=== PATIENT | female | born 1990 | race Caucasian/White ===

== ENCOUNTER 2017-04-25 11:45 | Emergency (ER) | payer BC, OTHER ==
[~2017-04-25] VITALS: Ht 167.6 cm; Wt 78.0 kg
[~2017-04-25 11:45] MED LIST: OXYC-360 PO
[2017-04-25 12:05] VITALS: BP 143/103; PULSE 97; RESP 18; TEMP 98.9; O2SAT 98
[2017-04-25] MEDS ORDERED: MORPHINE SULFATE 4 MG/ML INJ IV PUSH ONE (12:15)
[2017-04-25] MEDS ORDERED: SODIUM CHLORIDE 0.9% FLUSH 10 ML FLUSH IV FLUSH PRN (12:15)
--- NOTE | 2017-04-25 12:20 | PD ---
HPI Chief Complaint: Musculoskeletal Complaint Time Seen by Provider: 11:59 Travel History International Travel<30 days: No Contact w/Intl Traveler<30days: No Traveled to known affect area: No History of Present Illness HPI Patient is a 27 year old female who presents to ER with c/o of right shoulder pain. Patient reports that she was "horsing around" with her friend last night around 11pm. Reports that she ended up falling onto a table and landing on her right shoulder. Patient's friend landed on top of her during this. Reports that she has been having moderate to severe pains with ROM to her right shoulder. Patient's friend reports that he googled how to do a shoulder reduction while at home, reports "i can't get her shoulder back into place." Patient denies any trauma to her head/neck. Denies chest pain/sob. Denies abdominal pain. Reports that she last ate food last night but did have a few beers this morning. Denies hx of shoulder dislocation in the past. Patient reports that she is not on any medications at this time. PFSH Past Medical History Depression: Yes (2 OTHER SUICIDE ATTEMPTS) Diminished Hearing: No Past Surgical History Tonsillectomy: Yes (2006) Social History Alcohol Use: Yes Tobacco Use: No Substance Use: No Allergies-Medications (Allergen,Severity, Reaction): Coded Allergies: No Known Allergies (Verified Allergy, Mild, 05/30/07) Reported Meds & Prescriptions Reported Meds & Active Scripts Active Tramadol (Tramadol HCl) 50 Mg Tab 50 Mg PO Q6H PRN Review of Systems General / Constitutional: No: Fever Eyes: No: Visual changes HENT: No: Headaches Cardiovascular: No: Chest Pain or Discomfort Respiratory: No: Shortness of Breath Gastrointestinal: No: Abdominal Pain Genitourinary: No: Dysuria Musculoskeletal: Positive: Limited ROM (right shoulder), Pain (right shoulder) Skin: No Rash Neurologic: No: Weakness Psychiatric: No: Depression Endocrine: No: Polydipsia Hematologic/Lymphatic: No: Easy Bruising Physical Exam Narrative GENERAL: moderate distress SKIN: Focused skin assessment warm/dry. HEAD: Atraumatic. Normocephalic. EYES: Pupils equal and round. No scleral icterus. No injection or drainage. ENT: No nasal bleeding or discharge. Mucous membranes pink and moist. NECK: Trachea midline. No JVD. CARDIOVASCULAR: Regular rate and rhythm. No murmur appreciated. RESPIRATORY: No accessory muscle use. Clear to auscultation. Breath sounds equal bilaterally. GASTROINTESTINAL: Abdomen soft, non-tender, nondistended. Hepatic and splenic margins not palpable. MUSCULOSKELETAL: LUE: normal exam RUE: patient with pain with ROM to right shoulder but she does have full passive ROM to right shoulder, distal clavicular tenderness, no skin tenting, no obvious fx, pulses intact, neurovascularly intact NEUROLOGICAL: Awake and alert. No obvious cranial nerve deficits. Motor grossly within normal limits. Normal speech. PSYCHIATRIC: Appropriate mood and affect; insight and judgment normal. Data Data Last Documented VS Vital Signs Date Time Temp Pulse Resp B/P (MAP) Pulse Ox O2 Delivery O2 Flow Rate FiO2 04/25/17 12:47 20 04/25/17 12:30 136/88 (104) 04/25/17 12:22 96 Room Air 04/25/17 12:05 98.9 97 Orders Orders Ed Urine Pregnancytest Poc (04/25/17 12:02) Clavicle (04/25/17 ) Morphine Inj (Morphine Inj) (04/25/17 12:15) Iv Access Insert/Monitor (04/25/17 12:02) Ecg Monitoring (04/25/17 12:02) Oximetry (04/25/17 12:02) Sodium Chloride 0.9% Flush (Ns Flush) (04/25/17 12:15) ^ Sling (04/25/17 13:08) MDM Medical Decision Making Medical Screen Exam Complete: Yes Emergency Medical Condition: Yes Medical Record Reviewed: Yes Interpretation(s) Vital Signs Date Time Temp Pulse Resp B/P (MAP) Pulse Ox O2 Delivery O2 Flow Rate FiO2 04/25/17 12:47 20 04/25/17 12:30 136/88 (104) 04/25/17 12:22 96 Room Air 04/25/17 12:05 98.9 97 18 143/103 (116) 98 Differential Diagnosis Differential includes shoulder dislocation, clavicular fracture, humerus fracture Narrative Course 27-year-old female who presents to emergency room with complaints of right- sided shoulder pain after she fell onto it onto a table last night. Patient reports pain with range of motion to her right shoulder. X-ray of the shoulder was ordered. An IV was placed, patient was placed on a clinical research monitor as well as pulse oximeter, IV morphine administered for pain. Patient with clavicular fx Will place patient in sling and have her follow up with ortho She will return to ER as needed Diagnosis Primary Impression: Closed right clavicular fracture Qualified Codes: S42.001A - Fracture of unspecified part of right clavicle, initial encounter for closed fracture Referrals: Elmer Day MD Patient Instructions: General Instructions, Narcotic given in the ED Departure Forms: Tests/Procedures, Work Release Enter return to work date: Apr 26, 2017 Additional Instructions: Please provide patient with a copy of her studies at discharge Please follow up with orthopedic surgeon as well as your primary care doctor Return to ER as needed Rest and place on your clavicle. Med/Other Pt SpecificInfo: Prescription(s) given Scripts Tramadol (Tramadol) 50 Mg Tab 50 MG PO Q6H Y for PAIN, #10 TAB 0 Refills Prov: Kell Cano DO 04/25/17 Disposition: 01 DISCHARGE HOME Condition: Stable Kell Cano DO Apr 25, 2017 12:20
[2017-04-25 12:22] VITALS: O2SAT 96
[2017-04-25 12:30] VITALS: BP 136/88
[2017-04-25 12:47] VITALS: RESP 20
[2017-04-25] MEDS ORDERED: TRAM50TA PO (13:01)
--- NOTE | 2017-04-25 13:05 | RADRPT ---
EXAM DATE/TIME: 04/25/2017 12:40 [facility] COMPARISON: No previous studies available for comparison. INDICATIONS : Right shoulder pain, post fall last night. MEDICAL HISTORY : None. SURGICAL HISTORY : None. ENCOUNTER: Initial ACUITY: 1 day PAIN SCORE: 10/10 LOCATION: Right upper extremity FINDINGS: There is an acute minimally displaced fracture involving the right mid clavicle. CONCLUSION: 1. Acute minimally displaced fracture involving right mid clavicle. Kofi Guidry MD on April 25, 2017 at 12:50 Board Certified Radiologist. This report was verified electronically.
== END 2017-04-25 13:25 | disposition home or self-care (01) ==
LOC: PHED 11:45
DX: S42.001A Fracture of unspecified part of right clavicle, initial encounter for closed fracture (principal); M25.511 Pain in right shoulder; F32.9 Major depressive disorder, single episode, unspecified; Z79.899 Other long term (current) drug therapy; W18.39XA Other fall on same level, initial encounter
CPT/HCPCS: 73000; 84703; 96374; 99284; J2270

== ENCOUNTER 2017-05-18 09:43 | Emergency (ER) | payer BC ==
[~2017-05-18] VITALS: Ht 165.1 cm; Wt 77.4 kg
[~2017-05-18 09:43] MED LIST changes: -OXYC-360 PO; +TRAM50TA PO
[2017-05-18 09:55] VITALS: BP 132/81; PULSE 100; RESP 16; TEMP 98.1; O2SAT 98
[2017-05-18] MEDS ORDERED: PRED20 PO (10:25)
[2017-05-18] MEDS ORDERED: diphenhydrAMINE HCL 50 MG CAP PO ONE (10:30)
[2017-05-18] MEDS ORDERED: predniSONE 20 MG TAB PO ONE (10:30)
--- NOTE | 2017-05-18 10:30 | PD ---
HPI Chief Complaint: Allergic/Adverse Reaction Time Seen by Provider: 10:24 Travel History International Travel<30 days: No Contact w/Intl Traveler<30days: No Traveled to known affect area: No History of Present Illness HPI 27 year old female presents for evaluation of left-sided facial swelling and itching. She reports that she noticed a little bit of swelling to her left cheek which was itchy yesterday. She woke up today and now she has swelling to the left eyelids as well. She denies any right-sided facial swelling however she has had some itching on the right side of her face. She denies any swelling of the lips, tongue, throat. She denies any widespread rash, shortness of breath. She does report that she recently started laxatives and stool softeners but denies any other medications that are new. She denies any new creams, lotions, detergents. She does not recall any bug bites or puncture wounds. She denies any pain. She has no other complaints at this time. [facility] Past Medical History Depression: Yes (2 OTHER SUICIDE ATTEMPTS) Diminished Hearing: No Immunizations Current: Yes ?: Not LMP: 2 weeks ago Past Surgical History Tonsillectomy: Yes (2006) Social History Alcohol Use: Yes Tobacco Use: Yes (07/11 PPD) Substance Use: No (DENIES AT PRESENT) Allergies-Medications (Allergen,Severity, Reaction): Coded Allergies: No Known Allergies (Verified Allergy, Mild, 05/18/17) Reported Meds & Prescriptions Reported Meds & Active Scripts Active Prednisone 20 Mg Tab 20 Mg PO BID 5 Days Review of Systems Except as stated in HPI: all other systems reviewed are Neg Physical Exam Narrative GENERAL: Well-developed well-nourished female in no acute distress SKIN: Warm and dry. There is some edema to the left periorbital and left maxillary region which is not erythematous or tender to palpation. HEAD: Atraumatic. Normocephalic. EYES: Pupils equal and round reactive to light extraocular muscles are intact. No scleral icterus. No injection or drainage. ENT: No nasal bleeding or discharge. Mucous membranes pink and moist. NECK: Trachea midline. No JVD. CARDIOVASCULAR: Regular rate and rhythm. No murmur appreciated. RESPIRATORY: No accessory muscle use. Clear to auscultation. Breath sounds equal bilaterally. Data Data Last Documented VS Vital Signs Date Time Temp Pulse Resp B/P (MAP) Pulse Ox O2 Delivery O2 Flow Rate FiO2 05/18/17 09:55 98.1 100 16 132/81 (98) 98 Orders Orders Prednisone (Deltasone) (05/18/17 10:30) Diphenhydramine (Benadryl) (05/18/17 10:30) MDM Medical Decision Making Medical Screen Exam Complete: Yes Emergency Medical Condition: Yes Medical Record Reviewed: Yes Differential Diagnosis Localized allergic reaction, angioedema, periorbital cellulitis Narrative Course Physical examination is consistent with localized allergic reaction. There is no evidence of periorbital cellulitic changes. The patient be treated with H1 antihistamines and steroids. Diagnosis Primary Impression: Allergic reaction Qualified Codes: T78.40XA - Allergy, unspecified, initial encounter Additional Instructions: Take Benadryl every 6 hours as needed for itching. Take the medication as prescribed. Cool compresses to the affected area. Follow-up with primary care as needed and return for any acutely new or worsening symptoms. Med/Other Pt SpecificInfo: Prescription(s) given Scripts Prednisone (Prednisone) 20 Mg Tab 20 MG PO BID for 5 Days, #10 TAB 0 Refills Prov: Fransisco Alfaro MD 05/18/17 Disposition: 01 DISCHARGE HOME Condition: Stable Juancarlos Benson May 18, 2017 10:30
== END 2017-05-18 10:39 | disposition home or self-care (01) ==
LOC: PHEFT 09:43
DX: T78.40XA Allergy, unspecified, initial encounter (principal)
CPT/HCPCS: 99283; J7512; Q0163

== ENCOUNTER 2018-01-06 08:28 | Observation (INO) | END 2018-01-06 18:36 | disposition home or self-care (01) | LOC: PH3 08:28 → INTOOBSV 09:34 → PHEDA 09:44 → PH3 13:23 | PROVIDERS: ADMIT Hospitalist; ATTEND Hospitalist ==